=== PATIENT | female | born 1960 | race Caucasian/White ===

== ENCOUNTER 2017-12-08 21:27 | Emergency (ER) | payer OTHER ==
[~2017-12-08] VITALS: Ht 167.6 cm; Wt 98.8 kg
[2017-12-08 22:06] LABS: HEMATOCRIT 38.9 % (36.0-46.0); HEMOGLOBIN 13.5 G/DL (11.9-15.5); MCH 30.1 PG (29.0-34.0); MCHC 34.7 G/DL (30.0-36.0); MCV 86.8 FL (83-99); PLATELET COUNT 248 K/uL (156-360); RBC DIS.WIDTH-CV 14.5 % (11.8-14.6); RBC DIS.WIDTH-SD 46.3 % (39-53); RED BLOOD COUNT 4.48 M/uL (3.80-5.20); WHITE BLOOD COUNT 5.9 K/uL (4.1-10.2)
[2017-12-08 22:16] LABS: APPEARANCE CLEAR ((CLEAR)); BILIRUBIN NEGATIVE; BLOOD NEGATIVE; COLOR STRAW ((YELLOW)); GLUCOSE (STRIP) NEGATIVE; KETONES NEGATIVE; LEUKOCYTES NEGATIVE; NITRITE NEGATIVE; PROTEIN (STRIP) NEGATIVE; SPECIFIC GRAVITY 1.008 (1.000-1.030); UCUL ADDED? NO; UROBILINOGEN 0.2 MG/DL (0.2-1.0)
[2017-12-08 22:17] LABS: ALBUMIN 4.4 g/dL (3.2-4.8); CHLORIDE 105 mEq/L (99-109); SODIUM 139 mEq/L (136-147)
[2017-12-08 22:19] LABS: GLUCOSE 103 mg/dL (70-99); TOTAL PROTEIN 6.9 g/dL (6.4-8.3)
[2017-12-08 22:21] LABS: TOTAL BILIRUBIN 0.5 mg/dL (0.0-1.0)
[2017-12-08 22:23] LABS: ALKALINE PHOSPHATASE 73 IU/L (3-129); CREATININE 0.7 mg/dL (0.6-1.3); GFR ESTIMATE (CALCULATED) > 59 mL/min/
[2017-12-08 22:24] LABS: UREA NITROGEN (BUN) 9 mg/dL (9-23)
[2017-12-08 22:25] LABS: AST (GOT) 20 IU/L (2-34)
[2017-12-08 22:26] LABS: ALT (GPT) 14 IU/L (3-49); LIPASE 35 U/L (1.0-51.0)
[2017-12-09] MEDS ORDERED: BENTYL20 MG PO (04:20)
[2017-12-09] MEDS ORDERED: DULCOLAX5 MG PO (04:20)
[2017-12-09 05:09] VITALS: BP 124/60
== END 2017-12-09 05:10 | disposition home or self-care (01) ==
LOC: EME 21:27
DX: K59.00 Constipation, unspecified (principal); Z96.653 Presence of artificial knee joint, bilateral
CPT/HCPCS: 74176; 80053; 81003; 83690; 85027; 99281; 99284

== ENCOUNTER → 2018-01-12 | Outpatient (CLI) | payer OTHER ==
[~2018-01-12] VITALS: Ht 167.6 cm; Wt 68.0 kg
[~2018-01-12] MED LIST: ALLERGY RELIEF10 M1 PO; BENTYL20 MG PO; DULCOLAX5 MG PO; LAMICTAL200 MG PO; LITE COAT ASPI325 M1 PO; NEURONTIN300 MG PO; PROBIOTIC1 EAC3 PO; PROZAC20 MG PO
== END | disposition home or self-care (01) ==
LOC: AMB 10:30
PROC: 0DJD8ZZ Inspection of Lower Intestinal Tract, Via Natural or Artificial Opening Endoscopic (ICD-10-PCS; principal; 2018-01-12)
DX: K59.00 Constipation, unspecified (principal); R10.9 Unspecified abdominal pain; Z80.7 Family history of other malignant neoplasms of lymphoid, hematopoietic and related tissues